=== PATIENT | female | born 1990 | race Caucasian/White ===

== ENCOUNTER → 2016-11-11 | Outpatient (CLI) | payer OTHER ==
[2016-11-11 11:36] LABS: BASOPHIL % 0.6 % (0-2); PLATELET COUNT 303 x10^3mcL (130-400); RED CELL DISTRIBUTION WIDTH 13.4 % (11.5-14.5)
[2016-11-11 12:05] LABS: ALBUMIN 3.8 g/dL (3.4-5.0); ALKALINE PHOSPHATASE 58 U/L (46-116); ALT/SGPT 15 U/L (14-59); AST/SGOT 15 U/L (15-37); BILIRUBIN TOTAL 0.7 mg/dL (0.20-1.00); CARBON DIOXIDE 29.2 mmol/L (21-32); CHLORIDE SERUM 107 mmol/L (98-107); CREATININE SERUM 0.9 mg/dL (0.6-1.0); GFR1 > 60 mL/min; GLUCOSE SERUM 86 mg/dL (74-106); HDL CHOLESTEROL 49 mg/dL (40-60); POTASSIUM SERUM 3.9 mmol/L (3.5-5.1); SODIUM SERUM 142 mmol/L (136-145); TOTAL PROTEIN, SERUM 7.6 g/dL (6.4-8.2); TRIGLYCERIDES 55 mg/dL (<150)
[2016-11-11 12:06] LABS: CHOLESTEROL 123 mg/dL (<200); CHOLESTEROL/HDL RATIO 2.5
== END | disposition home or self-care (01) ==
LOC: US 10:21
PROC: BW40ZZZ Ultrasonography of Abdomen (ICD-10-PCS; principal; 2016-11-11)
DX: K80.80 Other cholelithiasis without obstruction (principal); R53.83 Other fatigue

== ENCOUNTER → 2017-01-30 | Outpatient (CLI) | payer OTHER ==
[2017-01-30 09:39] LABS: microscopic required? NO
[2017-01-30 09:52] LABS: BASOPHIL % 0.4 % (0-2); PLATELET COUNT 307 x10^3mcL (130-400); RED CELL DISTRIBUTION WIDTH 13.5 % (11.5-14.5)
[2017-01-30 10:13] LABS: urine erythrocyte NEGATIVE (NEGATIVE)
[2017-01-30 10:23] LABS: ALKALINE PHOSPHATASE 59 U/L (46-116); ALT/SGPT 19 U/L (14-59); AST/SGOT 14 U/L (15-37); BILIRUBIN TOTAL 0.53 mg/dL (0.20-1.00); CALCIUM 8.7 mg/dL (8.5-10.1); CHLORIDE SERUM 109 mmol/L (98-107); CREATININE SERUM 0.7 mg/dL (0.6-1.0); GFR1 > 60 mL/min; GLUCOSE SERUM 85 mg/dL (74-106); POTASSIUM SERUM 3.9 mmol/L (3.5-5.1); SODIUM SERUM 147 mmol/L (136-145); TOTAL PROTEIN, SERUM 6.8 g/dL (6.4-8.2)
[2017-01-30 10:24] LABS: ALBUMIN 3.3 g/dL (3.4-5.0)
[2017-01-31 11:47] LABS: VITAMIN D 25-HYDROXY 25.4 ng/mL (30.0-100.0)
== END | disposition home or self-care (01) ==
LOC: LB 09:23
DX: Z13.89 Encounter for screening for other disorder (principal)

== ENCOUNTER → 2017-02-03 | Outpatient (CLI) | payer OTHER | END | disposition home or self-care (01) | LOC: US 09:30 | PROC: BT43ZZZ Ultrasonography of Bilateral Kidneys (ICD-10-PCS; principal; 2017-02-03) | PROC: BW4GZZZ Ultrasonography of Pelvic Region (ICD-10-PCS; 2017-02-03) | DX: R10.2 Pelvic and perineal pain (principal) ==

== ENCOUNTER 2018-01-21 08:20 | Emergency (ER) | payer MEDICAID, OTHER ==
[~2018-01-21] VITALS: Ht 165.1 cm; Wt 59.4 kg
[2018-01-21 08:36] VITALS: Ht 165.1 cm; Wt 59.4 kg
[2018-01-21 09:56] VITALS: BP 115/59
== END 2018-01-21 09:56 | disposition home or self-care (01) ==
LOC: ED 08:20
DX: N39.0 Urinary tract infection, site not specified (principal); Z88.6 Allergy status to analgesic agent